=== PATIENT | male | born 1965 | race Caucasian/White ===

== ENCOUNTER 2020-11-03 06:31 | Emergency (ER) | payer OTHER ==
[~2020-11-03] VITALS: Ht 167.6 cm; Wt 89.0 kg
[2020-11-03 06:37] VITALS: BP 140/71
[2020-11-03] MEDS ORDERED: CEPH500T PO (06:50)
--- NOTE | 2020-11-03 06:51 | PHYS DOC ---
General Adult EDM: Chief Complaint: INSECT BITE HPI: HPI: 55-year-old male presents with rash of the right axilla. Patient thinks he has a spider bite. He first noticed the red nodule yesterday morning. The redness around it has gotten worse. It is also gotten more tender. There is a "black" in the center of the area. The patient has had these before and does not want to get any worse. He denies fever or chills. There has not been any spontaneous drainage from the area. Review of Systems: Review of Systems: Constitutional: Denies fever or chills Eyes: Denies change in visual acuity HENT: Denies nasal congestion or sore throat Respiratory: Denies cough or shortness of breath Cardiovascular: Denies chest pain or edema GI: Denies abdominal pain, nausea, vomiting, bloody stools or diarrhea : Denies dysuria Musculoskeletal: Denies back pain or joint pain Integument: Insect bite, rash Neurologic: Denies headache, focal weakness or sensory changes Endocrine: Denies polyuria or polydipsia Lymphatic: Denies swollen glands Psychiatric: Denies depression or anxiety Allergies: Allergies: Allergies Coded Allergies Type Severity Reaction Last Updated Verified No Known Drug Allergies 11/03/20 No Physical Exam: PE: Constitutional: Well developed, well nourished, no acute distress, non-toxic appearance. [] HENT: Normocephalic, atraumatic, bilateral external ears normal, oropharynx moist, no oral exudates, nose normal. [] Eyes: PERRLA, EOMI, conjunctiva normal, no discharge. [] Neck: Normal range of motion, no tenderness, supple, no stridor. [] Cardiovascular:Heart rate regular rhythm, no murmur [] Lungs & Thorax: Bilateral breath sounds clear to auscultation [] Abdomen: Bowel sounds normal, soft, no tenderness, no masses, no pulsatile masses. [] Skin: Warm, erythematous area 3 cm x 7 cm in the right lateral axilla with no fluctuant abscess. Small white dot at the center without drainage. [] Back: No tenderness, no CVA tenderness. [] Extremities: No tenderness, no cyanosis, no clubbing, ROM intact, no edema. [] Neurologic: Alert and oriented X 3, normal motor function, normal sensory function, no focal deficits noted. [] Psychologic: Affect normal, judgement normal, mood normal. [] EKG: EKG: [] Radiology/Procedures: Radiology/Procedures: [] Heart Score: C/O Chest Pain: N/A Risk Factors: Risk Factors: DM, Current or recent (<one month) smoker, HTN, HLP, family history of CAD, obesity. Risk Scores: Score 0 - 3: 2.5% MACE over next 6 weeks - Discharge Home Score 4 - 6: 20.3% MACE over next 6 weeks - Admit for Clinical Observation Score 7 - 10: 72.7% MACE over next 6 weeks - Early Invasive Strategies Course & Med Decision Making: Course & Med Decision Making Pertinent Labs and Imaging studies reviewed. (See chart for details) The patient's rash is consistent with cellulitis. There is not an abscess to drain at this time. There will likely be some small spontaneous drainage from the central black portion. I have advised the patient of this and to make sure he cleans the area well. I will place him on Keflex 3 times a day for 7 days. He is stable for discharge at this time. [] Dragon Disclaimer: Dragon Disclaimer: This electronic medical record was generated, in whole or in part, using a voice recognition dictation system. Departure Departure: Impression: Primary Impression: Cellulitis of right axilla Disposition: HOME / SELF CARE / HOMELESS Condition: STABLE Referrals: DINORA BUSTAMANTE MD (PCP) Patient Instructions: Cellulitis, [id number] Cephalexin (CEPHALEXIN) 500 Mg Tablet 1 TAB PO TID for cellulitis for 7 Days, #21 TAB Prov: LEVI UPTON DO 11/03/20 LEVI UPTON DO Nov 03, 2020 06:51
== END 2020-11-03 06:55 | disposition home or self-care (01) ==
LOC: ER 06:31
DX: L03.111 Cellulitis of right axilla (principal)
CPT/HCPCS: 99283

== ENCOUNTER 2021-10-05 13:46 | Emergency (ER) | payer OTHER ==
[~2021-10-05] VITALS: Ht 167.6 cm; Wt 85.5 kg
[~2021-10-05 13:46] MED LIST: CEPH500T PO
[2021-10-05] MEDS ORDERED: NITROGLYCERIN SUBLINGUAL 0.4 MG BOTTLE OF 25. SL PRN (14:00)
[2021-10-05] MEDS ORDERED: IV NORMAL SALINE 1,000ML 1,000 ML IV SCH (14:00)
--- NOTE | 2021-10-05 14:04 | PHYS DOC ---
Past History Past Medical History: No Pertinent History Past Surgical History: Other Additional Past Surgical Histo: hernia repair Alcohol Use: None General Adult EDM: Chief Complaint: CHEST PAIN HPI: HPI: Patient is a 56-year-old male who presents to the emergency department for left- sided chest pain that radiates to his left arm he describes as a tightness that started at midnight. He rates the pain in his chest 5 out of 10 the pain is an 8 out of 10. It is worse when he lays flat. No treatment prior to arrival. Patient denies any injury, shortness of breath, nausea, vomiting, fever, increased cough. He has a history of COPD and is a current smoker. Review of Systems: Review of Systems: Constitutional: See HPI Respiratory: See HPI Cardiovascular: See HPI GI: See HPI Allergies: Allergies: Allergies Coded Allergies Type Severity Reaction Last Updated Verified No Known Drug Allergies 11/03/20 No Physical Exam: PE: Constitutional: Well developed, well nourished, no acute distress, non-toxic appearance. [] HENT: Normocephalic, atraumatic, bilateral external ears normal, oropharynx moist, no oral exudates, nose normal. [] Eyes: PERRL, EOMI, conjunctiva normal, no discharge. [] Neck: Normal range of motion, no tenderness, supple, no stridor. [] Cardiovascular:Heart rate tachycardia rhythm, no murmur, no chest wall tenderness with palpation [] Lungs & Thorax: Bilateral breath sounds clear to auscultation [] Abdomen: Bowel sounds normal, soft, no tenderness, no masses, no pulsatile masses. [] Skin: Warm, dry, no erythema, no rash. [] Back: No tenderness, normal ROM Extremities: No tenderness, no cyanosis, no clubbing, ROM intact, no edema. [] Neurologic: Alert and oriented X 3, normal motor function, normal sensory function, no focal deficits noted. [] Psychologic: Affect normal, judgement normal, mood normal. [] Current Patient Data: Labs: Laboratory Tests Test 10/05/21 14:20 White Blood Count 7.7 x10^3/uL Red Blood Count 4.42 x10^6/uL Hemoglobin 15.8 g/dL Hematocrit 46.3 % Mean Corpuscular Volume 105 fL Mean Corpuscular Hemoglobin 36 pg Mean Corpuscular Hemoglobin Concent 34 g/dL Red Cell Distribution Width 14.0 % Platelet Count 217 x10^3/uL Neutrophils (%) (Auto) 55 % Lymphocytes (%) (Auto) 30 % Monocytes (%) (Auto) 12 % Eosinophils (%) (Auto) 3 % Basophils (%) (Auto) 2 % Neutrophils # (Auto) 4.2 x10^3uL Lymphocytes # (Auto) 2.3 x10^3/uL Monocytes # (Auto) 0.9 x10^3/uL Eosinophils # (Auto) 0.2 x10^3/uL Basophils # (Auto) 0.1 x10^3/uL Sodium Level 140 mmol/L Potassium Level 4.4 mmol/L Chloride Level 106 mmol/L Carbon Dioxide Level 26 mmol/L Anion Gap 8 Blood Urea Nitrogen 19 mg/dL Creatinine 0.9 mg/dL Estimated GFR (Cockcroft-Gault) 87.0 BUN/Creatinine Ratio 21 Glucose Level 112 mg/dL Calcium Level 8.8 mg/dL Total Bilirubin 0.1 mg/dL Aspartate Amino Transf (AST/SGOT) 13 U/L Alanine Aminotransferase (ALT/SGPT) 31 U/L Alkaline Phosphatase 56 U/L Troponin I High Sensitivity 86 ng/L Total Protein 6.1 g/dL Albumin 3.2 g/dL Albumin/Globulin Ratio 1.1 Current Medications Medications (Trade) Dose Ordered Sig/Rm Route PRN Reason Start Time Stop Time Status Last Admin Dose Admin Aspirin (Aspirin Chewable) 324 mg 1X ONCE PO 10/05/21 14:15 10/05/21 14:16 DC 10/05/21 14:23 Nitroglycerin (Nitrostat) 0.4 mg PRN Q5MIN PRN SL CP RATING > 1/10 10/05/21 14:00 10/06/21 13:59 10/05/21 14:24 Sodium Chloride 1,000 ml @ 1,000 mls/hr Q1H IV 10/05/21 14:00 10/05/21 14:59 DC 10/05/21 14:24 EKG: EKG: KG performed by ER staff at 1357 shows sinus rhythm with a rate of 73, no STEMI read by Dr. Olmos Radiology/Procedures: Radiology/Procedures: [] Heart Score: C/O Chest Pain: Yes HEART Score for Chest Pain: HEART Score for Chest Pain Response (Comments) Value History Moderately Suspicious 1 ECG Normal 0 Age >45 - < 65 1 Risk Factors 1 or 2 Risk Factors 1 Troponin >1-<3x Normal Limit 1 Total 4 Risk Factors: Risk Factors: DM, Current or recent (<one month) smoker, HTN, HLP, family history of CAD, obesity. Risk Scores: Score 0 - 3: 2.5% MACE over next 6 weeks - Discharge Home Score 4 - 6: 20.3% MACE over next 6 weeks - Admit for Clinical Observation Score 7 - 10: 72.7% MACE over next 6 weeks - Early Invasive Strategies Course & Med Decision Making: Course & Med Decision Making Pertinent Labs and Imaging studies reviewed. (See chart for details) Patient presents to the emergency department for left-sided chest pain that radiates to his left arm. Work-up in the ER consisted of blood work including troponin and D-dimer as patient is tachycardic. EKG and chest x-ray performed. Patient treated with aspirin and nitroglycerin. Following treatment with nitroglycerin, patient is chest pain free. Patient is noted to have a elevated troponin of 86, remainder of patient's blood work was unremarkable. His chest x-ray did not show any acute findings. Patient's heart score is 4. I discussed patient's case with Nora with cardiology at [facility] and after consultation with Dr. Correa, patient will be transferred to [facility]. I discussed patient's case with Dr. Swartz who agreed to admit the patient under his services. Heparin drip ordered. I discussed patient's findings with him and care plan he is agreeable to transfer. Luan Disclaimer: Luan Disclaimer: This electronic medical record was generated, in whole or in part, using a voice recognition dictation system. Departure Departure: Impression: Primary Impression: NSTEMI (non-ST elevated myocardial infarction) Additional Impression: Chest pain Qualified Codes: R07.9 - Chest pain, unspecified Disposition: 02 SHORT TERM HOSPITAL Condition: STABLE Referrals: DINORA BUSTAMANTE MD (PCP) TARSHA LOWE INVENTORY REPRESENTATIVE October 05, 2021 14:04
[2021-10-05] MEDS ORDERED: ASPIRIN CHEWABLE 81 MG TABLET. PO ONE (14:15)
[2021-10-05 14:41] LABS: BASO # 0.1 x10^3/uL (0.0-0.2); BASO % 2 % (0-3); EOS # 0.2 x10^3/uL (0.0-0.7); EOS % 3 % (0-3); HEMATOCRIT 46.3 % (39.0-53.0); HEMOGLOBIN 15.8 g/dL (13.0-17.5); LYMPH # 2.3 x10^3/uL (1.0-4.8); LYMPH % 30 % (24-48); MEAN CORPUSCULAR HEMOGLOBIN 36 pg (25-35); MEAN CORPUSCULAR HGB CONC 34 g/dL (31-37); MEAN CORPUSCULAR VOLUME 105 fL (79-100); MONO # 0.9 x10^3/uL (0.0-1.1); MONO % 12 % (0-9); NEUT # 4.2 x10^3uL (1.8-7.7); NEUT % 55 % (31-73); PLATELET COUNT 217 x10^3/uL (140-400); RED BLOOD COUNT 4.42 x10^6/uL (4.30-5.70); WHITE BLOOD COUNT 7.7 x10^3/uL (4.0-11.0)
[2021-10-05 14:47] LABS: CALCIUM 8.8 mg/dL (8.5-10.1); CREATININE 0.9 mg/dL (0.7-1.3); POTASSIUM 4.4 mmol/L (3.5-5.1)
[2021-10-05 14:53] LABS: ALBUMIN 3.2 g/dL (3.4-5.0); ALBUMIN/GLOBULIN RATIO 1.1 (1.0-1.7); TOTAL BILIRUBIN 0.1 mg/dL (0.2-1.0); TOTAL PROTEIN 6.1 g/dL (6.4-8.2)
--- NOTE | 2021-10-05 15:59 | RAD ---
XR CHEST 1V History: Chest pain Comparison: None. Technique: Portable AP radiograph of the chest. Findings: The lungs are adequately and symmetrically inflated. No airspace consolidation, pleural effusion or p neumothorax. The cardiomediastinal silhouette and pulmonary vasculature are within normal limits. Mil d aortic calcifications. Endplate osteophytes in the thoracic spine. Soft tissues are unremarkable. Impression: 1. No acute cardiopulmonary process. Electronically signed by: Tenzin Chandler MD (10/05/2021 2:59 PM) [id number]
[2021-10-05] MEDS ORDERED: HEPARIN for IV BOLUS 10,000 UNIT/10 ML VIAL. IV ONE (16:15)
[2021-10-05] MEDS ORDERED: HEPARIN for IV BOLUS 10,000 UNIT/10 ML VIAL. IV PRN (16:15)
[2021-10-05] MEDS ORDERED: HEPARIN 25,000UTS/250ML PREMIX 250 ML IV PRN (16:15)
[2021-10-05 16:52] VITALS: BP 150/78
--- NOTE | 2021-10-06 11:01 | PDOC ---
PROVIDER NOTE PROVIDER NOTE PROVIDER NOTE Cardiology consultation note: Late entry for 10/05/2021 Reason for consultation: Non-ST elevation [place] History of present illness: Pleasant 56-year-old man who comes into the ER with classic unstable anginal symptoms. He is been having stuttering chest pain over the last week or so but this worsened the evening prior to evaluation. He reports is substernal chest pain with radiation down his left arm as well as up his neck. He was given nitroglycerin in the ER which completely resolved his symptoms. Troponin was initially elevated and his EKG was unremarkable. The patient currently denies any chest pain, palpitations, syncope, orthopnea or PND. No other prior cardiovascular interventions. Past medical history: 1. COPD 2. Tobacco abuse Social history: Patient works in engineering. He denies any illicit drug use. He does smoke. No significant alcohol use. Family history is notable for coronary artery disease in the mother and father. Review of systems negative for 10 out of 14 systems reviewed unless otherwise mentioned above in HPI Allergies no known drug allergies Current cardiovascular occasions Aspirin, heparin drip Physical exam: Vital signs stable The patient appeared well nourished and normally developed. Head exam is unremarkable. No scleral icterus or corneal arcus noted. Neck is without jugular venous distension, thyromegaly, or carotid bruits. Carotid upstrokes are brisk bilaterally. Lungs are clear to auscultation and percussion. Cardiac exam reveals the PMI to be normally sized and situated. Rhythm is regular. First and second heart sounds normal. No murmurs, rubs or gallops. Abdominal exam reveals normal bowel sounds, no masses, no organomegaly and no aortic enlargement. Extremities are nonedematous and both femoral and pedal pulses are normal. Msk: No traumua Neuro: No focal deficits Diagnostic studies: Troponin mildly elevated EKG is unremarkable Remainder lab work and chest x-ray are unremarkable Impression: 1. Non-ST elevation [place] 2. COPD 3. History of tobacco abuse Recommendations: 1. I had a long discussion today with the patient regarding the risks and benefits of cardiac catheterization. Given his classic symptoms and abnormal biomarkers we will proceed with a cardiac catheterization. The patient is in agreement. Continue heparin drip. Transferred to [facility] for cardiac catheterization the next 24 hours. Late entry for 10/05/2021 Justification of Admission: Justification of Admission: Justification of Admission Dx: N/A MIRYAM LOUIS MD October 06, 2021 11:01
== END 2021-10-05 17:20 | disposition short-term general hospital (02) ==
LOC: ER 13:46
DX: I21.4 Non-ST elevation (NSTEMI) myocardial infarction (principal); R07.89 Other chest pain; J44.9 Chronic obstructive pulmonary disease, unspecified; F17.200 Nicotine dependence, unspecified, uncomplicated
CPT/HCPCS: 36415; 71045; 80053; 84484; 85025; 85379; 85610; 85730; 93005; 96361; 96365; 96376; 99285; J1644; J7030